=== PATIENT | female | born 2000 | race Caucasian/White ===

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

== ENCOUNTER → 2022-01-29 10:36 | Outpatient (CLI) | payer OTHER, MEDICAID, SELFPAY | PROVIDERS: PCP Pediatrics; Visit Provider Student in an Organized Health Care Education/Training Program | DX: J02.9 Acute pharyngitis, unspecified (principal) | CPT/HCPCS: 87070; 87880 ==

== ENCOUNTER 2022-07-08 09:44 | Emergency (ER) | payer OTHER, SELFPAY ==
[2022-07-08 09:50] VITALS: BP 123/73; PULSE 64; RESP 14; TEMP 36.3; O2SAT 97
--- NOTE | 2022-07-08 10:02 | DI.RAD.S_ITS ---
PROCEDURE: XR WRIST LT MIN 3V INDICATIONS: twist / grab = pain. TECHNIQUE: Four views of the wrist were acquired. COMPARISON: [facility], CR, XR WRIST LT MIN 3V, 05/08/2021, 15:39. FINDINGS: Bones: No fractures or dislocations. No suspicious bony lesions. Scaphoid view: Intact scaphoid Soft tissues: No suspicious soft tissue calcifications. IMPRESSION: Intact left wrist. Dictated by: Yuki Keith M.D. on 07/08/2022 at 10:31 Approved by: Yuki Keith M.D. on 07/08/2022 at 10:32
[2022-07-08] MEDS: ACETAMINOPHEN 325 MG TABLET 650 MG PO (10:23)
[2022-07-08 10:24] VITALS: PULSE 68
--- NOTE | 2022-07-08 11:21 | ED_ITS ---
HPI - Extremity Injury (Upper) General Chief Complaint: Extremity Injury, Upper Stated Complaint: hurt left wrist at work Time Seen by Provider: 07/08/22 11:20 Source: patient Mode of arrival: Ambulatory History of Present Illness HPI narrative: This is a 21-year-old female who is [id number] and presents with complaint of left wrist pain. 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 She states she does have movement but is uncomfortable. She denies numbness or tingling, no weakness. She can flex extend her fingers normally. She has not appreciate any swelling or ecchymosis. This happened just earlier today prior to arrival. She denies any other injuries. She denies any medical issues, no daily prescriptions. No prior injuries to this area. Patient had some Tylenol here in the department and ice pack and states it is feeling improved. Former smoker, occasional alcohol, no illicit. Patient did fill out L and I paperwork and returned it to staff. Related Data Allergies Allergy/AdvReac Type Severity Reaction Status Date / Time No Known Drug Allergies Allergy Verified 01/29/22 10:22 Review of Systems Review of Systems ROS Unobtainable: All systems reviewed & are unremarkable except as noted in HPI and below Patient History Medical History Left wrist injury Social History Smoking Status: Former smoker Smoking Status: Former smoker tobacco type: vaping alcohol intake frequency: holidays/special occasions only Substance Use Type: does not use Exam Narrative Exam Narrative: GENERAL: Alert and oriented x three, well-appearing female in mild distress. HEENT: Head normocephalic, atraumatic, EOMI, pupils reactive, face symmetric, moist mucous membranes NECK: Supple, full range of motion EXTREMITIES: Normal range of motion, no clubbing or edema. Neurovascularly intact. No bony tenderness, patient has good range of motion she is little bit more comfortable with flexion-extension supination pronation but able to go through full range of motion. Normal flexion extension and adduction and abduction of all 5 fingers. 2+ radial pulse. Normal sensation throughout. Patient has 2+ radial pulse with cap refill less than 2 seconds in all 5 fingers. No obvious ecchymosis, erythema or skin changes appreciated. NEUROLOGICAL: Cranial nerves II through XII grossly intact. Moving all ext remities SKIN: Warm, dry, no petechiae, no rashes or lesions. Initial Vital Signs Initial Vital Signs: Vital Signs Temperature 97.3 F L 07/08/22 09:50 Pulse Rate 64 07/08/22 09:50 Respiratory Rate 14 07/08/22 09:50 Blood Pressure 123/73 07/08/22 09:50 Pulse Oximetry 97 07/08/22 09:50 Oxygen Delivery Method Room Air 07/08/22 09:50 Course Orders Ordered: ED Orders 07/08/22 10:02 XR wrist LT min 3V Stat Discontinued Medications Acetaminophen (Acetaminophen 325 Mg Tablet) 650 mg PO NOW ONE Stop: 07/08/22 10:03 Last Admin: 07/08/22 10:23 Dose: 650 mg Documented By: DOMINGO Vital Signs Vital signs: Vital Signs - 8 hr 07/08/22 11:32 Pulse Rate 62 Respiratory Rate 15 Blood Pressure 118/70 Pulse Oximetry 99 Oxygen Delivery Method Room Air MDM - Extremity Injury (Upper) Imaging Data Extremity x-ray #1: Radiologist's Impression: [place] [address] XRay Report Signed Patient: Itzel Sharpe V MR#: [id number] : 2000 Acct:[id number] Age/Sex: 21 / F Date of Service: 07/08/22 Loc: ED Accession Number: [id number] ?? Procedure: XR wrist LT min 3V Ordering Provider: Natalie Houston D.O. PROCEDURE:? XR WRIST LT MIN 3V ? INDICATIONS: twist / grab = pain. ? TECHNIQUE:? Four views of the wrist were acquired.? ? COMPARISON:? [facility], [facility], XR WRIST LT MIN 3V, 05/08/2021, 15:39. ? FINDINGS:? ? Bones:? No fractures or dislocations.? No suspicious bony lesions.? ? Scaphoid view:? Intact scaphoid ? Soft tissues:? No suspicious soft tissue calcifications.? ? IMPRESSION:? Intact left wrist. ? ? Dictated by: Yuki Keith M.D. on 07/08/2022 at 10:31 ? ? Approved by: Yuki Keith M.D. on 07/08/2022 at 10:32?? MDM Narrative Medical decision making narrative: This is a 21-year-old female who presents with musculoskeletal injury from work. She states a quite large resident wish himself up by grabbing her left wrist while she was attempting to assist him. She is had pain with some mild decrease in motion. Patient's exam is overall reassuring x-rays negative I suspect more of a strain sprain injury. RICE with decreased use for the short term. Plan for NSAIDs/Tylenol and follow-up if symptoms persisting. Discharge Plan Departure Patient Disposition: Home Clinical Impression: Left wrist sprain Instructions: DI for Wrist Sprain Activity Restrictions/Additional Instructions: Follow-up in the next 7-10 days for recheck and possible repeat imaging if sym ptoms are not improving. You may take Tylenol up to a 1000 mg every 6 hours and/or ibuprofen up to 600 mg every 6 hours as needed. Elevated affected body part to decrease swelling. OK to use ice pack on the affected body part. Use for 15-20 minutes each time, for 5-6x per day. If you develop worsening pain, numbness, tingling, discoloration of the affected body part either see your doctor for an urgent re-assessment, or return to the Emergency Department. Return to the Emergency Department for any new or worsening symptoms. Referrals: Clarence Enciso MD [Primary Care Provider] - Stand Alone Forms: Patient Portal/API, Work Release Note
[2022-07-08 11:32] VITALS: BP 118/70; PULSE 62; RESP 15; O2SAT 99
== END 2022-07-08 11:34 | disposition home or self-care (01) ==
PROVIDERS: Emergency Provider Emergency Medicine; PCP Pediatrics
DX: S63.502A Unspecified sprain of left wrist, initial encounter (principal); X50.1XXA Overexertion from prolonged static or awkward postures, initial encounter; Y99.0 Civilian activity done for income or pay
CPT/HCPCS: 73110; 99283

== ENCOUNTER → 2023-02-21 01:11 | Outpatient (CLI) | payer OTHER, MEDICAID, SELFPAY | PROVIDERS: PCP Family Medicine; Referring Provider Family Medicine; Visit Provider Family Medicine | DX: Z23 Encounter for immunization (principal) | CPT/HCPCS: 90471; 90686 ==

== ENCOUNTER → 2024-06-15 16:31 | Outpatient (CLI) | payer OTHER, SELFPAY | PROVIDERS: PCP Family Medicine; Visit Provider Nurse Practitioner Family | DX: J02.9 Acute pharyngitis, unspecified (principal) | CPT/HCPCS: 87070 ==

== ENCOUNTER 2024-09-10 08:15 | Outpatient (RCR) | payer OTHER, SELFPAY ==
--- NOTE | 2024-09-01 11:59 | PT.OIE ---
Current Diagnoses Low back pain, unspecified (09/01/24) Past Medical History (Last Updated 07/29/24 @ 13:57 by Ramandeep Morley DO) Healthy adolescent Left wrist injury Work related injury Past Surgical History (Last Reviewed 03/19/23 @ 15:31 by Rachel Hendricks PA-C) Anesthesia History of oral surgery (~03/2022) History of root canal procedure (~11/2021) [place] teeth removed (~06/01/22) Visit Care Team Role Provider Type Ramandeep Morley DO Attending Provider Physician Family Provider Primary Care Provider Referring Provider Specialty: Medical Address: [address] [place] [address], [address], [place], [address] Email: [email or web address] Physical Therapy Initial Evaluation PT-OP-A Visit Information Start: 09/01/24 08:00 Freq: Status: Active Protocol: Document 09/01/24 08:01 BL (Rec: 09/01/24 09:33 BL Laptop) Out-Patient Physical Therapy Visit Information Visit Information Visit Type Initial Evaluation Visit Start Time 08:15 Visit Stop Time 09:00 Visit Number (1) 1/10 Number of DIRECTOR SUPPLIER QUALITY Visits 0 Evaluation Information Evaluation Date 09/01/24 PT-OP-C Subjective Start: 09/01/24 08:00 Freq: Status: Active Protocol: Document 09/01/24 08:01 BL (Rec: 09/01/24 09:33 BL Laptop) OP-PT Subjective Patient Comments Patient Comments Pt presents to the clinic in R low back pain that has radiated down into the R hip, progressively worsening to 6-7 /10 at its worst. Initially noticed while driving to school. Also notices a feeling like her L hip needs to pop occasionally when walking. Pt describes pain in R side as seeing hot pain. Pt reports sleeping on her back seems to improve symptoms, pt also reports when walking longer distances or standing for several hours she reaches the point where she needs to sit. Pt continues to have difficulty when driving her pickup. Pt reports she has tried youtube yoga with minimal success, she will also occasionally take 400mg of ibrophen when symptoms are really bad. Patient Reported Progress Same Patient Questionnaires Oswestry Low Back Index Oswestry Score 26% disability PT-OP-F Manual Assessment Start: 09/01/24 08:00 Freq: Status: Active Protocol: Document 09/01/24 08:01 BL (Rec: 09/01/24 09:33 BL Laptop) Manual Assessments Soft Tissue Assessment Soft Tissue Mobility Assessment Increased tissue tension noted through R paraspinals T8-L5 PT-OP-H Neuro Start: 09/01/24 08:00 Freq: Status: Active Protocol: Document 09/01/24 08:01 BL (Rec: 09/01/24 09:33 BL Laptop) Sensation Evaluation Gross Sensation Gross Sensation WNL PT-OP-K Range of Motion Start: 09/01/24 08:00 Freq: Status: Active Protocol: Document 09/01/24 08:01 BL (Rec: 09/01/24 09:33 BL Laptop) Lumbar Spine Range of Motion Lumbar Spine Active Percentage Testing Position Standing Comments flexion: WFL slight pull on R side extension: WFL pressure on R side L lat flex: pull on R side R lat flex: WFL L rot: WFL R rot: WFL PT-OP-L Special Tests Start: 09/01/24 08:00 Freq: Status: Active Protocol: Document 09/01/24 08:01 BL (Rec: 09/01/24 09:33 BL Laptop) Special Tests Lumbar Spine Special Tests Straight Leg Raise Test Results + symptoms on R, range WFL Slump Test Results + on R Comments decreased tension with ankle plantarflex PT-OP-M Strength Start: 09/01/24 08:00 Freq: Status: Active Protocol: Document 09/01/24 08:01 BL (Rec: 09/01/24 09:33 BL Laptop) Trunk Strength Trunk Manual Muscle Testing Testing Position Supine Flexion 4 Good Core Stabilization unable to maintain core stability with Crystal SLR Hip Strength Hip Manual Muscle Testing Right Extension (S1) 4+ Good+ Abduction 4 Good Adduction 5 Normal Left Flexion (L2) 5 Normal Extension (S1) 4+ Good+ Abduction 4+ Good+ Knee Strength Knee Manual Muscle Testing Right Flexion (S2) 5 Normal Left Flexion (S2) 5 Normal PT-OP-Q Treatments Start: 09/01/24 08:00 Freq: Status: Active Protocol: Document 09/01/24 08:01 BL (Rec: 09/01/24 09:33 BL Laptop) Therapeutic Exercises Supine Exercises Hip Supine Exercise Name LTR, R SL bridge with core activation/ Piriformis st. Comments 10x / 3x 30 sec Core Supine Exercise Name ... Cre Supine Exercise Name ... Manual Therapy Treatment Soft Tissue Mobilization 1 Body Location Low back Comments DTM w TPR to R paraspinals with increased tissue mobility following. PT-OP-T Assessment and Plan Start: 09/01/24 08:00 Freq: Status: Active Protocol: Document 09/01/24 08:01 BL (Rec: 09/01/24 09:33 BL Laptop) Physical Therapy Assessment Rehab Potential Rehabilitation Potential Good Evaluation Complexity Number of Personal Factors/Comorbidities 1-2 Number of Body Systems Impaired 3 Clinical Presentation at Evaluation Stable Impairments Impairments Activity Tolerance, Coordination,Functional Activities,Functional Mobility ,Posture,ROM,Soft Tissue Mobility,Strength Goals Three Asw Specialist Goal (LTG) Pt will report an OSWESTRY score of 13% disability or better by DC for improved quality of life. Two Mcfp Goal (LTG) Pt will be able to maintain tight core for crystal SLR activity without low back lifting off table in supine by DC for improved stability with ADLS. One Short Term Goal (STG) Pt will be ind with HEP within 2 visits in order to progress toward terminal carman therapy goals outside of therapy visits. Mcfp Goal (LTG) Pt will report being able to to sit through class with out pain becoming greater than 3/ 10 by DC. Assessment Summary Assessment Pt presents with longstanding low back pain for the past three months, pt reports pain with sitting and standing activity. Pt demos decreased hip and abdominal strength with increased tissue tension noted through paraspinals, pt demos no loss of sensation or coordination. Pt will benefit from skilled Physical Therapy intervention for strength and endurance training in order to improve functional mobility. Physical Therapy Plan Frequency and Duration Frequency of Treatment 2x/Week Duration of treatment (weeks) 12 Plan of Care Start Date 09/01/24 Plan of Care End Date 11/24/24 Therapeutic Interventions Therapeutic Interventions Balance Training,Coordination Training,Gait Training,Home Exercise Program,Manual Therapy,Patient/Caregiver Education,Self-Care/Home Management,Sensory Integration ,Soft Tissue Mobilization, Taping,Therapeutic Activities, Therapeutic Exercises Modalities Cold Pack/Ice Massage,Electric Stimulation,Hot Packs, Infrared Therapy,Iontophoresis ,Traction- Mechanical, Ultrasound Next Visit Focus/Plan Next Note Type Treatment Note Next Visit Plan Advance core stability and LE stabiliyt strengthening. DTM for crystal paraspinals.
--- NOTE | 2024-09-01 12:00 | PT.OPPOC ---
Physical, Occupational & Speech Therapy At [facility] Current Diagnoses Low back pain, unspecified (09/01/24) Visit Care Team Role Provider Type Ramandeep Morley DO Attending Provider Physician Family Provider Primary Care Provider Referring Provider Specialty: Medical Address: [address] [place] [address], [address], [place], [address] Email: [email or web address] Plan Of Care PT-OP-T Assessment and Plan Start: 09/01/24 08:00 Freq: Status: Active Protocol: Document 09/01/24 08:01 BL (Rec: 09/01/24 09:33 BL Laptop) Physical Therapy Assessment Rehab Potential Rehabilitation Potential Good Evaluation Complexity Number of Personal Factors/Comorbidities 1-2 Number of Body Systems Impaired 3 Clinical Presentation at Evaluation Stable Impairments Impairments Activity Tolerance, Coordination,Functional Activities,Functional Mobility ,Posture,ROM,Soft Tissue Mobility,Strength Goals Three Crew Trainer Goal (LTG) Pt will report an OSWESTRY score of 13% disability or better by DC for improved quality of life. Two Alf Goal (LTG) Pt will be able to maintain tight core for crystal SLR activity without low back lifting off table in supine by DC for improved stability with ADLS. One Short Term Goal (STG) Pt will be ind with HEP within 2 visits in order to progress toward manager terminal therapy goals outside of therapy visits. Alf Goal (LTG) Pt will report being able to to sit through class with out pain becoming greater than 3/ 10 by DC. Assessment Summary Assessment Pt presents with longstanding low back pain for the past three months, pt reports pain with sitting and standing activity. Pt demos decreased hip and abdominal strength with increased tissue tension noted through paraspinals, pt demos no loss of sensation or coordination. Pt will benefit from skilled Physical Therapy intervention for strength and endurance training in order to improve functional mobility. Physical Therapy Plan Frequency and Duration Frequency of Treatment 2x/Week Duration of treatment (weeks) 12 Plan of Care Start Date 09/01/24 Plan of Care End Date 11/24/24 Therapeutic Interventions Therapeutic Interventions Balance Training,Coordination Training,Gait Training,Home Exercise Program,Manual Therapy,Patient/Caregiver Education,Self-Care/Home Management,Sensory Integration ,Soft Tissue Mobilization, Taping,Therapeutic Activities, Therapeutic Exercises Modalities Cold Pack/Ice Massage,Electric Stimulation,Hot Packs, Infrared Therapy,Iontophoresis ,Traction- Mechanical, Ultrasound Next Visit Focus/Plan Next Note Type Treatment Note Next Visit Plan Advance core stability and LE stabiliyt strengthening. DTM for crystal paraspinals. Plan of Care Dates Plan of Care Start Date 09/01/24 Plan of Care End Date 11/24/24 Electronically Signed by: Adonis Szymanski, PT 09/01/24 1200 If you are in agreement with this Plan of Care, please return a signed and dated copy. I have reviewed this Plan of Care and certify that the skilled therapy services above are required to meet the patient?s needs. Physician Signature Date Printed Name and Credentials Clinical Instructor Signature Printed Name and Credentials
--- NOTE | 2024-09-03 09:12 | PT.OTN ---
Current Diagnoses Low back pain, unspecified (09/03/24) Physical Therapy Treatment Note PT-OP-A Visit Information Start: 09/01/24 08:00 Freq: Status: Active Protocol: Document 09/03/24 08:20 BL (Rec: 09/03/24 09:11 BL Laptop) Out-Patient Physical Therapy Visit Information Visit Information Visit Type Treatment Note Visit Start Time 08:15 Visit Stop Time 09:00 Visit Number (2) 2/10 Number of WORLD LANGUAGE TEACHER Visits 0 PT-OP-C Subjective Start: 09/01/24 08:00 Freq: Status: Active Protocol: Document 09/03/24 08:20 BL (Rec: 09/03/24 09:11 BL Laptop) OP-PT Subjective Patient Comments Patient Comments Pt presents to the clinic this date and reports she is doing well, states overall she feels the pain is better, feels comfortable with the HEP and has been consistent with this. PT-OP-F Manual Assessment Start: 09/01/24 08:00 Freq: Status: Active Protocol: Document 09/01/24 08:01 BL (Rec: 09/01/24 09:33 BL Laptop) Manual Assessments Soft Tissue Assessment Soft Tissue Mobility Assessment Increased tissue tension noted through R paraspinals T8-L5 PT-OP-H Neuro Start: 09/01/24 08:00 Freq: Status: Active Protocol: Document 09/01/24 08:01 BL (Rec: 09/01/24 09:33 BL Laptop) Sensation Evaluation Gross Sensation Gross Sensation WNL PT-OP-K Range of Motion Start: 09/01/24 08:00 Freq: Status: Active Protocol: Document 09/01/24 08:01 BL (Rec: 09/01/24 09:33 BL Laptop) Lumbar Spine Range of Motion Lumbar Spine Active Percentage Testing Position Standing Comments flexion: WFL slight pull on R side extension: WFL pressure on R side L lat flex: pull on R side R lat flex: WFL L rot: WFL R rot: WFL PT-OP-L Special Tests Start: 09/01/24 08:00 Freq: Status: Active Protocol: Document 09/01/24 08:01 BL (Rec: 09/01/24 09:33 BL Laptop) Special Tests Lumbar Spine Special Tests Straight Leg Raise Test Results + symptoms on R, range WFL Slump Test Results + on R Comments decreased tension with ankle plantarflex PT-OP-M Strength Start: 09/01/24 08:00 Freq: Status: Active Protocol: Document 09/01/24 08:01 BL (Rec: 09/01/24 09:33 BL Laptop) Trunk Strength Trunk Manual Muscle Testing Testing Position Supine Flexion 4 Good Core Stabilization unable to maintain core stability with James SLR Hip Strength Hip Manual Muscle Testing Right Extension (S1) 4+ Good+ Abduction 4 Good Adduction 5 Normal Left Flexion (L2) 5 Normal Extension (S1) 4+ Good+ Abduction 4+ Good+ Knee Strength Knee Manual Muscle Testing Right Flexion (S2) 5 Normal Left Flexion (S2) 5 Normal PT-OP-Q Treatments Start: 09/01/24 08:00 Freq: Status: Active Protocol: Document 09/03/24 08:20 BL (Rec: 09/03/24 09:11 BL Laptop) Therapeutic Exercises Supine Exercises Hip Supine Exercise Name LTR, R SL bridge with core activation/ Piriformis st. ( reviewed)/ bird dog Comments 10x / 3x 30 sec Standing Exercises hip Standing Exercise Name lateral banded walking, Bosu squats w 10# Resistance lvl 3 Comments 4x 20' Manual Therapy Treatment Soft Tissue Mobilization 1 Body Location Low back Comments DTM w TPR to R paraspinals with increased tissue mobility following. L paraspinals at L 1 stiff this date, improved tissue mobility following PT-OP-T Assessment and Plan Start: 09/01/24 08:00 Freq: Status: Active Protocol: Document 09/03/24 08:20 BL (Rec: 09/03/24 09:11 BL Laptop) Physical Therapy Assessment Rehab Potential Rehabilitation Potential Good Evaluation Complexity Number of Personal Factors/Comorbidities 1-2 Number of Body Systems Impaired 3 Clinical Presentation at Evaluation Stable Impairments Impairments Activity Tolerance, Coordination,Functional Activities,Functional Mobility ,Posture,ROM,Soft Tissue Mobility,Strength Goals Three Assisted Goal (LTG) Pt will report an OSWESTRY score of 13% disability or better by DC for improved quality of life. Two Taxation Accountant Goal (LTG) Pt will be able to maintain tight core for james SLR activity without low back lifting off table in supine by DC for improved stability with ADLS. One Short Term Goal (STG) Pt will be ind with HEP within 2 visits in order to progress toward terminal carman therapy goals outside of therapy visits. Assisted Goal (LTG) Pt will report being able to to sit through class with out pain becoming greater than 3/ 10 by DC. Assessment Summary Assessment Pt tolerates HEP well, progressed HEP for hip strengthening and tolerates well, increased hip abduction strength, weakness noted with lateral banded walking. Pt tolerates DTM this date with improved tissue mobility following. Continue to focus on strength and endurance training. Physical Therapy Plan Frequency and Duration Frequency of Treatment 2x/Week Duration of treatment (weeks) 12 Plan of Care Start Date 09/01/24 Plan of Care End Date 11/24/24 Therapeutic Interventions Therapeutic Interventions Balance Training,Coordination Training,Gait Training,Home Exercise Program,Manual Therapy,Patient/Caregiver Education,Self-Care/Home Management,Sensory Integration ,Soft Tissue Mobilization, Taping,Therapeutic Activities, Therapeutic Exercises Modalities Cold Pack/Ice Massage,Electric Stimulation,Hot Packs, Infrared Therapy,Iontophoresis ,Traction- Mechanical, Ultrasound Next Visit Focus/Plan Next Note Type Treatment Note Next Visit Plan Advance core stability and LE stabiliyt strengthening. DTM for james paraspinals.
--- NOTE | 2024-09-10 08:57 | PT.OTN ---
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 PT-OP-F Manual Assessment Start: 09/01/24 08:00 Freq: Status: Active Protocol: Document 09/01/24 08:01 BL (Rec: 09/01/24 09:33 BL Laptop) Manual Assessments Soft Tissue Assessment Soft Tissue Mobility Increased tissue tension noted through R paraspinals T8 Assessment -L5 PT-OP-H Neuro Start: 09/01/24 08:00 Freq: Status: Active Protocol: Document 09/01/24 08:01 BL (Rec: 09/01/24 09:33 BL Laptop) Sensation Evaluation Gross Sensation Gross Sensation WNL PT-OP-K Range of Motion Start: 09/01/24 08:00 Freq: Status: Active Protocol: Document 09/01/24 08:01 BL (Rec: 09/01/24 09:33 BL Laptop) Lumbar Spine Range of Motion Lumbar Spine Active Percentage Testing Position Standing Comments flexion: WFL slight pull on R side extension: WFL pressure on R side L lat flex: pull on R side R lat flex: WFL L rot: WFL R rot: WFL PT-OP-L Special Tests Start: 09/01/24 08:00 Freq: Status: Active Protocol: Document 09/01/24 08:01 BL (Rec: 09/01/24 09:33 BL Laptop) Special Tests Lumbar Spine Special Tests Straight Leg Raise Test Results + symptoms on R, range WFL Slump Test Results + on R Comments decreased tension with ankle plantarflex PT-OP-M Strength Start: 09/01/24 08:00 Freq: Status: Active Protocol: Document 09/01/24 08:01 BL (Rec: 09/01/24 09:33 BL Laptop) Trunk Strength Trunk Manual Muscle Testing Testing Position Supine Flexion 4 Good Core Stabilization unable to maintain core stability with James SLR Hip Strength Hip Manual Muscle Testing Right Extension (S1) 4+ Good+ Abduction 4 Good Adduction 5 Normal Left Flexion (L2) 5 Normal Extension (S1) 4+ Good+ Abduction 4+ Good+ Knee Strength Knee Manual Muscle Testing Right Flexion (S2) 5 Normal Left Flexion (S2) 5 Normal PT-OP-Q Treatments Start: 09/01/24 08:00 Freq: Status: Active Protocol: Document 09/10/24 08:10 BL (Rec: 09/10/24 08:57 BL Laptop) Therapeutic Exercises Supine Exercises Hip Supine Exercise Name LTR, R SL bridge with core activation/ Piriformis st. ( reviewed)/ bird dog Comments 10x / 3x 30 sec Core Supine Exercise Name quadraped hip abduction, side plank with hip abduction Resistance lvl 3 Manual Therapy Treatment Soft Tissue Mobilization 1 Body Location Low back Comments DTM w TPR to R paraspinals with increased tissue mobility following, bilateral piriformis and grad 1PA mobs for R lumbar. L paraspinals at L 1 stiff this date, improved tissue mobility following PT-OP-T Assessment and Plan Start: 09/01/24 08:00 Freq: Status: Active Protocol: Document 09/10/24 08:10 BL (Rec: 09/10/24 08:57 BL Laptop) Physical Therapy Assessment Goals Three Fulfillment Associate Goal (LTG) Pt will report an OSWESTRY score of 13% disability or better by DC for improved quality of life. Two Custodial Goal (LTG) Pt will be able to maintain tight core for james SLR activity without low back lifting off table in supine by DC for improved stability with ADLS. 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 Custodial Goal (LTG) Pt will report being able to to sit through class with out pain becoming greater than 3/10 by DC. Assessment Summary Assessment Pt tolerates HEP well, progressed HEP for hip and core strengthening and tolerates well, increased hip abduction strength. Pt tolerates DTM this date with improved tissue mobility following. Continue to focus on strength and endurance training. Physical Therapy Plan Frequency and Duration Frequency of 2x/Week Treatment Duration of 12 treatment (weeks) Plan of Care Start 09/01/24 Date Plan of Care End 11/24/24 Date Therapeutic Interventions Therapeutic Balance Training,Coordination Training,Gait Training, Interventions Home Exercise Program,Manual Therapy,Patient/Caregiver Education,Self-Care/Home Management,Sensory Integration ,Soft Tissue Mobilization,Taping,Therapeutic Activities ,Therapeutic Exercises Modalities Cold Pack/Ice Massage,Electric Stimulation,Hot Packs, Infrared Therapy,Iontophoresis,Traction- Mechanical, Ultrasound Next Visit Focus/Plan Next Note Type Treatment Note Next Visit Plan Advance core stability and LE stabiliyt strengthening. DTM for james paraspinals.
--- NOTE | 2024-09-22 08:21 | PT-OP ANOTE ---
Pt cancelled 3rd consecutive appt today, no reason given. GATE ATTENDANT called/left voice message, importance of attendance to progress support of POC coming for PT but appreciate calling in advance to cancel. GATE ATTENDANT reminded of next appt with PT 09/24. Reminded if need to cancel appt can ask if can reschedule instead to continue proactive in care.
--- NOTE | 2024-11-03 09:30 | PT.OPDS ---
Current Diagnoses Low back pain, unspecified (09/10/24) Visit Care Team Role Provider Type Ramandeep Morley DO Attending Provider Physician Family Provider Primary Care Provider Referring Provider Specialty: Medical Address: [address] [place] [address], [address], [place], [address] Email: [email or web address] Visit Number Visit Number (3) 06/15 Discharge Summary Pt last seen on 09/10/24 and cancelled 3 follow up appts with no reason give, Plan to DC pt at this time due to lack of progress toward therapy goals. PT-OP-C Subjective Start: 09/01/24 08:00 Freq: Status: Active Protocol: Document 09/10/24 08:10 BL (Rec: 09/10/24 08:57 BL Laptop) OP-PT Subjective Patient Comments Patient Comments Pt presents to the clinic this date and reports she is doing much better, states overall pain is much better, no longer bothering her when in the car, states if she is sitting on the couch it still bothers her when she is shifted onto one side. PT-OP-F Manual Assessment Start: 09/01/24 08:00 Freq: Status: Active Protocol: Document 09/01/24 08:01 BL (Rec: 09/01/24 09:33 BL Laptop) Manual Assessments Soft Tissue Assessment Soft Tissue Mobility Increased tissue tension noted through R paraspinals T8 Assessment -L5 PT-OP-H Neuro Start: 09/01/24 08:00 Freq: Status: Active Protocol: Document 09/01/24 08:01 BL (Rec: 09/01/24 09:33 BL Laptop) Sensation Evaluation Gross Sensation Gross Sensation WNL PT-OP-K Range of Motion Start: 09/01/24 08:00 Freq: Status: Active Protocol: Document 09/01/24 08:01 BL (Rec: 09/01/24 09:33 BL Laptop) Lumbar Spine Range of Motion Lumbar Spine Active Percentage Testing Position Standing Comments flexion: WFL slight pull on R side extension: WFL pressure on R side L lat flex: pull on R side R lat flex: WFL L rot: WFL R rot: WFL PT-OP-L Special Tests Start: 09/01/24 08:00 Freq: Status: Active Protocol: Document 09/01/24 08:01 BL (Rec: 09/01/24 09:33 BL Laptop) Special Tests Lumbar Spine Special Tests Straight Leg Raise Test Results + symptoms on R, range WFL Slump Test Results + on R Comments decreased tension with ankle plantarflex PT-OP-M Strength Start: 09/01/24 08:00 Freq: Status: Active Protocol: Document 09/01/24 08:01 BL (Rec: 09/01/24 09:33 BL Laptop) Trunk Strength Trunk Manual Muscle Testing Testing Position Supine Flexion 4 Good Core Stabilization unable to maintain core stability with James SLR Hip Strength Hip Manual Muscle Testing Right Extension (S1) 4+ Good+ Abduction 4 Good Adduction 5 Normal Left Flexion (L2) 5 Normal Extension (S1) 4+ Good+ Abduction 4+ Good+ Knee Strength Knee Manual Muscle Testing Right Flexion (S2) 5 Normal Left Flexion (S2) 5 Normal PT-OP-T Assessment and Plan Start: 09/01/24 08:00 Freq: Status: Active Protocol: Document 09/10/24 08:10 BL (Rec: 09/10/24 08:57 BL Laptop) Physical Therapy Assessment Goals Three Doughmaker Goal (LTG) Pt will report an OSWESTRY score of 13% disability or better by DC for improved quality of life. Two Doughmaker Goal (LTG) Pt will be able to maintain tight core for james SLR activity without low back lifting off table in supine by DC for improved stability with ADLS. 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 Doughmaker Goal (LTG) Pt will report being able to to sit through class with out pain becoming greater than 3/10 by DC. Assessment Summary Assessment Pt tolerates HEP well, progressed HEP for hip and core strengthening and tolerates well, increased hip abduction strength. Pt tolerates DTM this date with improved tissue mobility following. Continue to focus on strength and endurance training. Physical Therapy Plan Frequency and Duration Frequency of 2x/Week Treatment Duration of 12 treatment (weeks) Plan of Care Start 09/01/24 Date Plan of Care End 11/24/24 Date Therapeutic Interventions Therapeutic Balance Training,Coordination Training,Gait Training, Interventions Home Exercise Program,Manual Therapy,Patient/Caregiver Education,Self-Care/Home Management,Sensory Integration ,Soft Tissue Mobilization,Taping,Therapeutic Activities ,Therapeutic Exercises Modalities Cold Pack/Ice Massage,Electric Stimulation,Hot Packs, Infrared Therapy,Iontophoresis,Traction- Mechanical, Ultrasound Next Visit Focus/Plan Next Note Type Treatment Note Next Visit Plan Advance core stability and LE stabiliyt strengthening. DTM for james paraspinals.
== END 2024-11-04 10:16 | disposition home or self-care (01) ==
LOC: PHYS 08:15
PROVIDERS: Family Provider Family Medicine; PCP Family Medicine; Referring Provider Family Medicine; Visit Provider Family Medicine
DX: M54.50 Low back pain, unspecified (principal)
CPT/HCPCS: 97110; 97140; 97162

== ENCOUNTER → 2025-01-21 16:08 | Outpatient (CLI) | payer OTHER, SELFPAY ==
--- NOTE | 2025-01-21 16:09 | DI.RAD.S_ITS ---
PROCEDURE: XR SACRUM COCCYX MIN 2V INDICATIONS: R post SI pain TECHNIQUE: 3 views of the sacrum and coccyx acquired. COMPARISON: None. FINDINGS: Bones: No fractures or dislocations. No suspicious bony lesions. Soft tissues: Visualized bowel gas pattern is normal. No suspicious soft tissue densities. IMPRESSION: No evidence of acute osseous abnormality. Dictated by: Seun Eldridge M.D. on 01/25/2025 at 6:20 Approved by: Seun Eldridge M.D. on 01/25/2025 at 6:21
--- NOTE | 2025-01-21 16:09 | DI.RAD.S_ITS ---
PROCEDURE: XR PELVIS 1-2V INDICATIONS: point tenderness R post iliac crest TECHNIQUE: Single AP view of the pelvis acquired. COMPARISON: None. FINDINGS: Bones: No fractures or dislocations. No suspicious bony lesions. Soft tissues: Visualized bowel gas pattern is normal. No suspicious soft tissue calcifications. IMPRESSION: No acute bony abnormality. Dictated by: Seun Eldridge M.D. on 01/25/2025 at 6:19 Approved by: Seun Eldridge M.D. on 01/25/2025 at 6:20
== END ==
PROVIDERS: PCP Family Medicine; Referring Provider Family Medicine; Visit Provider Family Medicine
DX: M54.50 Low back pain, unspecified (principal)
CPT/HCPCS: 72170; 72220